=== PATIENT | male | born 1995 | race Caucasian/White ===

== ENCOUNTER 2022-05-20 13:46 | Outpatient (REF) | payer BC, SELFPAY ==
[2022-05-22 13:43] LABS: COVID-19 RT-PCR UVMMC Result Negative (Negative)
== END 2022-05-20 13:47 | disposition home or self-care (01) ==
LOC: LBN 13:46
PROVIDERS: Visit Provider Physician Assistant Medical
DX: Z20.822 Contact with and (suspected) exposure to COVID-19 (principal)
CPT/HCPCS: U0003

== ENCOUNTER 2024-03-08 15:38 | Outpatient (CLI) | payer MEDICAID, SELFPAY ==
--- NOTE | 2024-03-08 14:16 | DI.RAD_ITS ---
Exam(s) XR KNEES MERCHANT ONLY EXAM: XR KNEES MERCHANT ONLY CLINICAL HISTORY: eval crepitus of patellofemoral joints. TECHNIQUE: 2D digital imaging was performed. COMPARISON: No exams were available for comparison FINDINGS: Single merchant's view There are no patellar fractures evident on this single view. No significant patellar displacement. On the right side there is mild degenerative change in the lateral aspect of the patellofemoral tatiana rtment. No patellar displacement. Bone density normal. No osseous lesions nor osteochondral defects evident. IMPRESSION: Mild degenerative changes in the lateral aspect of the right patellofemoral compartment. DATA REPOSITORY: RADIATION DOSE DELIVERED:
== END 2024-03-08 15:39 | disposition home or self-care (01) ==
LOC: DIORS 15:38
PROVIDERS: Visit Provider Student in an Organized Health Care Education/Training Program
DX: M17.0 Bilateral primary osteoarthritis of knee (principal)
CPT/HCPCS: 73565